=== PATIENT | male | born 1990 | race Caucasian/White ===

== ENCOUNTER 2017-07-01 13:18 | Emergency (ER) | payer OTHER, MEDICARE ==
[~2017-07-01] VITALS: Ht 177.8 cm; Wt 79.4 kg
[~2017-07-01 13:18] MED LIST: BENADRYL25 MG PO; HYDHCL25 PO; Pepcid40 MG PO; Prednisone20 MG PO; Zithromax250 MG PO
== END 2017-07-01 14:45 | disposition home or self-care (01) ==
LOC: ER 13:18
DX: S91.012A Laceration without foreign body, left ankle, initial encounter (principal); Z88.0 Allergy status to penicillin; Z79.899 Other long term (current) drug therapy; W29.3XXA Contact with powered garden and outdoor hand tools and machinery, initial encounter
CPT/HCPCS: 12034; 73600; 99283

== ENCOUNTER 2017-07-11 08:59 | Emergency (ER) | payer OTHER, MEDICARE ==
[~2017-07-11] VITALS: Ht 172.7 cm; Wt 72.6 kg
== END 2017-07-11 10:05 | disposition home or self-care (01) ==
LOC: ER 08:59
DX: S91.012D Laceration without foreign body, left ankle, subsequent encounter (principal); Z88.0 Allergy status to penicillin; F41.9 Anxiety disorder, unspecified; F32.9 Major depressive disorder, single episode, unspecified; F17.210 Nicotine dependence, cigarettes, uncomplicated; W29.3XXD Contact with powered garden and outdoor hand tools and machinery, subsequent encounter
CPT/HCPCS: 90471; 90714; 99282

== ENCOUNTER → 2017-07-20 | Outpatient (CLI) | payer OTHER, MEDICARE ==
[~2017-07-20] MED LIST changes: +Vistaril25 MG PO
[2017-07-20 11:27] LABS: Specimen Source URINE
[2017-07-21 03:30] LABS: Source Urine
[2017-07-21 06:35] LABS: HCV Non Reactive (NR)
== END ==
LOC: LAB EV 11:20
PROVIDERS: Family Medicine
DX: Z11.3 Encounter for screening for infections with a predominantly sexual mode of transmission (principal); Z72.51 High risk heterosexual behavior
CPT/HCPCS: 80074; 86592; 87389; 87491; 87591

== ENCOUNTER 2017-10-13 23:06 | Emergency (ER) | payer MEDICARE, OTHER ==
[~2017-10-13] VITALS: Ht 175.3 cm; Wt 74.8 kg
[~2017-10-13 23:06] MED LIST changes: -Vistaril25 MG PO
[2017-10-14] MEDS ORDERED: Vistaril25 MG PO (00:32)
== END 2017-10-14 00:53 | disposition home or self-care (01) ==
LOC: ER 23:06
DX: J06.9 Acute upper respiratory infection, unspecified (principal); F41.9 Anxiety disorder, unspecified; Z88.0 Allergy status to penicillin; F32.9 Major depressive disorder, single episode, unspecified; F17.210 Nicotine dependence, cigarettes, uncomplicated
CPT/HCPCS: 87081; 87430; 99283

== ENCOUNTER → 2019-04-13 | Outpatient (CLI) | payer OTHER, MEDICARE ==
[~2019-04-13] MED LIST changes: +Vistaril25 MG PO
== END | disposition home or self-care (01) ==
LOC: LAB SHORT 12:03 → LAB EV 12:03
DX: J02.9 Acute pharyngitis, unspecified (principal)
CPT/HCPCS: 87081; 87147

== ENCOUNTER → 2020-05-02 | Outpatient (CLI) | payer MEDICARE, OTHER | END | disposition home or self-care (01) | LOC: LAB SHORT 13:36 → LAB EV 13:36 | DX: J02.9 Acute pharyngitis, unspecified (principal) | CPT/HCPCS: 87081; 87147 ==

== ENCOUNTER → 2020-06-02 | Outpatient (CLI) | payer OTHER, MEDICARE | END | disposition home or self-care (01) | LOC: LAB SHORT 12:06 → LAB EV 12:06 | DX: J06.9 Acute upper respiratory infection, unspecified (principal) | CPT/HCPCS: 87081 ==

== ENCOUNTER → 2021-06-26 | Outpatient (CLI) | payer MEDICARE, OTHER | END | disposition home or self-care (01) | LOC: LAB SHORT 10:00 | DX: J02.9 Acute pharyngitis, unspecified (principal) | CPT/HCPCS: 87081 ==

== ENCOUNTER 2022-10-28 09:33 | Day surgery (SDC) | payer MEDICARE, OTHER ==
[~2022-10-28] VITALS: Ht 172.7 cm; Wt 79.1 kg
[2022-10-28] MEDS ORDERED: BUSPIRONE HCL10 M6 PO (10:07)
[2022-10-28] MEDS ORDERED: ALLERCLEAR10 MG PO (10:09)
[2022-10-28 11:54] VITALS: BP 138/88
--- NOTE | 2022-10-28 12:53 | NUR ---
10/28/22 1253 PHANI SANDERSON IV REMOVED AT 1215. CANULA INTACT, SITE WNL, PT TOLERATED PROCEDURE WELL.
== END 2022-10-28 12:49 | disposition home or self-care (01) ==
LOC: ORSCSDS 09:33
PROVIDERS: Orthopaedic Surgery
PROC: 01N50ZZ Release Median Nerve, Open Approach (ICD-10-PCS; principal; 2022-10-28 11:00)
DX: G56.03 Carpal tunnel syndrome, bilateral upper limbs (principal); F41.9 Anxiety disorder, unspecified; Z72.0 Tobacco use; Z79.899 Other long term (current) drug therapy
CPT/HCPCS: J2250; J7120

== ENCOUNTER 2024-01-15 17:16 | Emergency (ER) | payer MEDICARE, OTHER ==
[~2024-01-15] VITALS: Ht 172.7 cm; Wt 79.4 kg
[~2024-01-15 17:16] MED LIST changes: +ALLERCLEAR10 MG PO; +BUSPIRONE HCL10 M6 PO
[2024-01-15 17:32] VITALS: BP 137/105
== END 2024-01-15 18:36 | disposition home or self-care (01) ==
LOC: ER 17:16
DX: U07.1 COVID-19 (principal); F17.210 Nicotine dependence, cigarettes, uncomplicated; Z88.0 Allergy status to penicillin
CPT/HCPCS: 99282